=== PATIENT | male | born 1960 ===

== ENCOUNTER 2017-05-25 18:07 | Emergency (ER) | payer OTHER ==
--- NOTE | 2017-05-25 19:41 | C.PDOC ---
History Of Present Illness Patient is a 56 y/o male who presents to the ED with a complaint of pain in the left foot. Patient admits he was seen in an ER in [place], [place] this past Tuesday and was told XR was negative for fractures. Patient states he continued to develop soft tissue swelling and redness of upper calf; patient saw Dr. Reed at 5:00pm today and was referred to ER for venous doppler to rule out DVT. No other physical complaints at this time. He denies associated chest pain or shortness of breath. He has no fever or chills. Time Seen by Provider: 05/25/17 18:46 Chief Complaint (Nursing): Lower Extremity Problem/Injury History Per: Patient History/Exam Limitations: no limitations Onset/Duration Of Symptoms: Days Current Symptoms Are (Timing): Still Present Recent travel outside of the [place]: No Past Medical History Reviewed: Historical Data, Nursing Documentation, Vital Signs Vital Signs: Last Vital Signs Temp 98.3 F 05/25/17 18:11 Pulse 73 05/25/17 18:11 Resp 20 05/25/17 18:11 BP 163/79 H 05/25/17 18:11 Pulse Ox 96 05/25/17 19:52 - Medical History PMH: No Chronic Diseases Surgical History: No Surg Hx Family History: States: No Known Family Hx - Social History Hx Alcohol Use: No Hx Substance Use: No - Immunization History Hx Tetanus Toxoid Vaccination: No Hx Influenza Vaccination: No Hx Pneumococcal Vaccination: No Review Of Systems Review Of Systems: ROS cannot be obtained secondary to pt's inabilty to answer questions. Constitutional: Negative for: Fever, Chills Cardiovascular: Negative for: Chest Pain Respiratory: Negative for: Shortness of Breath Musculoskeletal: Positive for: Leg Pain (swelling/redness in left upper calf), Foot Pain (left foot) Physical Exam - Physical Exam Appears: Well, Non-toxic, No Acute Distress Skin: Normal Color, Warm, Dry Head: Atraumatic, Normacephalic Oral Mucosa: Moist Chest: Symmetrical Cardiovascular: Rhythm Regular, No Murmur Respiratory: Normal Breath Sounds, No Rales, No Rhonchi, No Wheezing Gastrointestinal/Abdominal: Soft, No Tenderness Extremity: Calf Tenderness (left calf tender to palpation and compression), Swelling (diffuse swelling up to left knee ), Other (red and warm over lower anterior left amos; pulses normal.) Neurological/Psych: Oriented x3, Normal Speech, Normal Cognition ED Course And Treatment - Laboratory Results Result Diagrams: 05/25/17 20:04 05/25/17 20:04 Lab Interpretation: Abnormal (D-dimer 532) O2 Sat by Pulse Oximetry: 96 Pulse Ox Interpretation: Normal Progress Note: Blood work and D-Dimer ordered; unable to perform venous doppler due to no ammonia refrigeration technician available. Reevaluation Time: 21:05 Reassessment Condition: Unchanged (Patient treated with Lovenox SC.) Disposition Counseled Patient/Family Regarding: Studies Performed, Diagnosis, Need For Followup - Disposition Referrals: Matthew Reed MD [Staff Provider] - Disposition: HOME/ ROUTINE Disposition Time: 21:06 Condition: STABLE Additional Instructions: Be sure to return in the morning to have the doppler done on your leg. Return immediately for any development of shortness of breath or chest pain. Instructions: Deep Venous Thrombosis (ED) Forms: [facility] ([place]) - Clinical Impression Clinical Impression: Swelling of left lower extremity - Scribe Statement The provider has reviewed the documentation as recorded by the Scribe [place] All medical record entries made by the Scribe were at my direction and personally dictated by me. I have reviewed the chart and agree that the record accurately reflects my personal performance of the history, physical exam, medical decision making, and the department course for this patient. I have also personally directed, reviewed, and agree with the discharge instructions and disposition.
[2017-05-25 20:12] LABS: BASO % 0.5 % (0.0-2.0); EOS # 0.1 K/uL (0.0-0.7); EOS % 1.3 % (0.0-4.0); HEMATOCRIT 38.1 % (35.0-51.0); LYMPH # 1.5 K/uL (1.0-4.3); LYMPH % 22.6 % (20.0-40.0); MEAN CELL VOLUME 90.9 fL (80.0-94.0); MEAN CORPUSCULAR HEMOGLOBIN 31.5 pg (27.0-31.0); MEAN CORPUSCULAR HGB CONC 34.6 g/dL (33.0-37.0); MEAN PLATELET VOLUME 8.2 fL (7.2-11.7); MONO # 0.7 K/uL (0.0-0.8); MONO % 10.2 % (0.0-10.0); RED CELL DISTRIBUTION WIDTH 14.8 % (11.5-14.5); WHITE BLOOD COUNT 6.7 K/uL (4.8-10.8)
[2017-05-25 20:15] LABS: CHLORIDE 103 mmol/L (98-107); POTASSIUM 4.4 mmol/L (3.6-5.2); SODIUM 138 mmol/L (132-148)
[2017-05-25 20:17] LABS: BILIRUBIN,TOTAL 0.9 mg/dL (0.2-1.3); CARBON DIOXIDE 23 mmol/L (22-30); GFR AFRICAN-AMERICAN > 60
[2017-05-25 20:18] LABS: ALB/GLOB RATIO 1.1 (1.0-2.1); ALKALINE PHOSPHATASE 66 U/L (38-126); ALT/SGPT 67 U/L (21-72); AST/SGOT 46 U/L (17-59); BLOOD UREA NITROGEN 17 mg/dL (9-20); CALCIUM 9.2 mg/dl (8.6-10.4); GLUCOSE,RANDOM 88 mg/dL (75-110); TOTAL PROTEIN 8.3 g/dL (6.3-8.3)
[2017-05-25] MEDS ORDERED: Enoxaparin 40 mg Syringe SC STA (21:00)
[2017-05-25] MEDS ORDERED: Enoxaparin 80 mg Syringe ONE (21:27)
[2017-05-25] MEDS ORDERED: Enoxaparin 40 mg Syringe ONE (21:27)
[2017-05-25 21:39] VITALS: BP 139/90; PULSE 98; RESP 19; TEMP 98.5; O2SAT 98
== END 2017-05-25 21:39 | disposition home or self-care (01) ==
LOC: C.ER 18:07
DX: M79.89 Other specified soft tissue disorders (principal)
CPT/HCPCS: 80053; 85025; 85378; 96372; 99285; J1650

== ENCOUNTER 2017-05-26 11:47 | Emergency (ER) | payer OTHER ==
[2017-05-26 11:55] VITALS: BMI 38.4
[2017-05-26 11:58] VITALS: TEMP 98; O2SAT 98
[2017-05-26] MEDS ORDERED: Tmp-Smz 800 mg-160 mg DS Tab PO STA (13:28)
--- NOTE | 2017-05-26 13:30 | C.PDOC ---
History Of Present Illness Patient is a 56 y/o male who presents to the ED with a complaint of pain in the left foot for 1 week. Pt notes he noted atraumatic swelling and redness to his foot initially and since it has increased to his ankle. Pt was evaluated at [facility] 4 days ago with negative XR, and by Dr Reed yesterday and instructed to come to [facility] for vascular study. Vascular study was not able to be preformed yesterday therefore he was instructed to come back today. No other physical complaints at this time. He denies associated chest pain or shortness of breath. He has no fever or chills. No h/o gout Time Seen by Provider: 05/26/17 12:05 Chief Complaint (Nursing): Lower Extremity Problem/Injury History Per: Patient History/Exam Limitations: no limitations Onset/Duration Of Symptoms: Days Past Medical History Vital Signs: Last Vital Signs Temp 98 F 05/26/17 11:57 Pulse 76 05/26/17 11:57 Resp 18 05/26/17 11:57 BP 143/92 H 05/26/17 11:57 Pulse Ox 98 05/26/17 13:30 - Medical History PMH: HTN Family History: States: Unknown Family Hx - Social History Hx Alcohol Use: No Hx Substance Use: No - Immunization History Hx Tetanus Toxoid Vaccination: Yes Hx Influenza Vaccination: No Hx Pneumococcal Vaccination: No Review Of Systems Except As Marked, All Systems Reviewed And Found Negative. Constitutional: Negative for: Fever Respiratory: Negative for: Shortness of Breath Physical Exam - Physical Exam Appears: Well, Non-toxic, No Acute Distress Skin: Warm, Dry Head: Atraumatic, Normacephalic Eye(s): bilateral: Normal Inspection, EOMI Nose: Normal Oral Mucosa: Moist Neck: Normal, Normal ROM, Supple Chest: Symmetrical Cardiovascular: Rhythm Regular Respiratory: Normal Breath Sounds Gastrointestinal/Abdominal: Normal Exam Back: Normal Inspection Extremity: Normal ROM, Tenderness ((+) tenderness, swelling, warmth and erythema from the foot extending to the anterior calf. No Blistering. No open wound.), Calf Tenderness, Swelling Pulses: Left Dorsalis Pedis: Normal, Right Dorsalis Pedis: Normal Neurological/Psych: Oriented x3, Normal Speech, Normal Motor, Normal Sensation Gait: Steady ED Course And Treatment O2 Sat by Pulse Oximetry: 98 Progress Note: VAscular study negative. CAse discussed with Dr Reed who instructs antiboitics and will follow up in the office. Disposition - Disposition Referrals: Matthew Reed MD [Staff Provider] - Disposition: HOME/ ROUTINE Disposition Time: 13:29 Condition: STABLE Additional Instructions: Ice and elevate your leg. Return in two days for a wound check. Follow up with Dr Reed in 1-2 days for re-evaluation. Prescriptions: Cephalexin [cephalexin] 500 mg PO BID #14 cap Sulfamethoxazole/Trimethoprim [Bactrim DS 800 mg-160 mg] 1 tab PO BID #14 tab Instructions: Cellulitis (ED) Forms: [email or web address] (Yoruba) - Clinical Impression Clinical Impression: Cellulitis, Swelling of left lower extremity
[2017-05-26] MEDS ORDERED: Tmp-Smz 800 mg-160 mg DS Tab ONE (13:36)
[2017-05-26 13:44] VITALS: BP 136/75; PULSE 75; RESP 20
--- NOTE | 2017-05-27 12:59 | VASCLAB ---
PROCEDURE: Left Lower Extremity Venous Duplex Exam. HISTORY: pain PRIORS: None. TECHNIQUE: Left common femoral, femoral, popliteal and posterior tibial, peroneal and great saphenous veins were evaluated. Flow was assessed with color Doppler, compressibility, assessment of phasic flow and augmentation response. Report prepared by FABIOLA Alvarado, RVT FINDINGS: LEFT: 1. Common Femoral Vein: 1.1. Compressibility - Fully compressible: Thrombus - None : Flow - Phasic: Augmentation -Normal: Reflux - None. 2. Femoral Vein: 2.1. Compressibility - Fully compressible: Thrombus - None: Flow - Phasic: Augmentation -Normal: Reflux - None. 3. Popliteal Vein: 3.1. Compressibility - Fully compressible: Thrombus - None: Flow - Phasic: Augmentation -Normal: Reflux - None. 4. Posterior Tibial Vein: 4.1. Compressibility - Fully compressible: Thrombus - None: Flow - Phasic: Augmentation -Normal: Reflux - None. 5. Peroneal Vein: 5.1. Compressibility - Fully compressible: Thrombus - None: Flow - Phasic: Augmentation -Normal: Reflux - None. 6. Great Saphenous Vein: 6.1. Compressibility - Fully compressible: Thrombus - None: Flow - Phasic: Augmentation - Normal: Reflux - None. OTHER FINDINGS: IMPRESSION: No evidence of deep or superficial vein thrombosis of the left lower extremity with excellent venous flow. Normal valve function noted of the left side. Normal venous flow noted in the right common femoral vein.
== END 2017-05-26 13:43 | disposition home or self-care (01) ==
LOC: C.ER 11:47
DX: L03.116 Cellulitis of left lower limb (principal); M79.89 Other specified soft tissue disorders; I10 Essential (primary) hypertension